=== PATIENT | female | born 1985 | race Caucasian/White ===

== ENCOUNTER 2016-05-30 21:09 | Emergency (ER) | payer OTHER, SELFPAY ==
[~2016-05-30 21:09] MED LIST: ACET50TA OR; IBUP80TA OR
[2016-05-30 22:14] LABS: CONTROL LINE UCG INT CTR LINE PRESENT
[2016-05-30] MEDS ORDERED: PHENAZOPYRIDINE 100 MG TAB As Ordered ONE (23:00)
[2016-05-30] MEDS ORDERED: CIPROFLOXACIN 500 MG TAB As Ordered ONE (23:00)
--- NOTE | 2016-05-30 23:07 | EDDOCDS ---
Physician Documentation [facility] Name: Jocelyn Montoya Age: 30 yrs Sex: Female : 1985 Arrival Date: 05/30/2016 Time: 21:09 Bed I3 / M3 Private MD: Unknown Pcp Disposition: 05/30/16 22:58 Discharged to Home/Self Care. Impression: Urinary tract infection, site not specified. - Condition is Stable. - Discharge Instructions: Dysuria, Urinary Tract Infection. - Prescriptions for Cipro 500 mg Oral Tablet - take 1 tablet by ORAL route every 12 hours; 14 tablet. Pyridium 200 mg Oral Tablet - take 1 tablet by ORAL route every 8 hours for 3 days; 9 tablet. - Medication Reconciliation, Local Pharmacy Hours form. - Follow up: Private Physician; When: Call to arrange an appointment; Reason: Recheck today's complaints, Continuance of care. - Problem is new. - Symptoms are unchanged. Historical: - Allergies: no known allergies; - Home Meds: 1. Mirena 20 mcg/24 hr (5 years) intrauterine IUD - PMHx: ovarian cyst removal as child; - PSHx: ovarian cyst removal; - Social history: Smoking status: Patient uses tobacco products, heavy tobacco smoker. Patient/guardian denies using alcohol, street drugs, No barriers to communication noted, The patient speaks fluent Lithuanian, Speaks appropriately for age. - Family history: Not pertinent. - : The pt / caregiver states he / she is not on anticoagulants. Home medication list is obtained from the patient. - Exposure Risk Screening:: None identified. 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 3 in. (160.02 cm); Pain 8/10; 23:01 BP 133 / 84; Pulse 100; Resp 18; Temp 98.9; Pulse Ox 98% ; ajs 21:11 Body Mass Index 27.63 (70.76 kg, 160.02 cm) sew MDM: 21:23 UA Ordered. EDMS 21:58 UA Reviewed. mo1 22:00 Set up pelvic ordered. mo1 22:01 Urine Culture Ordered. EDMS 22:01 GC & Chlamydia Amplification Ordered. EDMS 22:01 Wet Prep Ordered. EDMS 22:01 Urine Test-In Lab Ordered. EDMS 22:24 Financial registration complete. gjb 22:28 [facility] Payment Agreement was scanned into [employer] and attached to record. gjb 22:37 Urine Test-In Lab Reviewed. mo1 22:57 Wet Prep Reviewed. mo1 22:58 Ciprofloxacin 500 mg PO once ordered. mo1 22:58 Phenazopyridine 200 mg PO once ordered. mo1 Administered Medications: 23:03 Drug: Ciprofloxacin 500 mg [ciprofloxacin 500 mg tablet (1 tabs)] Route: PO; kas2 23:03 Drug: Phenazopyridine 200 mg [phenazopyridine 100 mg tablet (2 tabs)] Route: PO; kas2 Signatures: Dispatcher [employer] Marta Greenfield RN RN Garret Bravo PA PA mo1 Fabienne Bonilla gjb Tania Peters RN RN kas2 The chart was reviewed and I authenticate all verbal orders and agree with the evaluation and treatment provided.Corrections: (The following items were deleted from the chart) 22:00 22:00 UCG by Nursing ordered. mo1 mo1 Attachments: 22:28 [facility] Payment Agreement [facility] MTDD
--- NOTE | 2016-05-30 23:07 | EDDOCDS ---
Nurse's Notes [facility] Name: Jocelyn Montoya Age: 30 yrs Sex: Female : 1985 Arrival Date: 05/30/2016 Time: 21:09 Bed I3 / M3 Private MD: Unknown Pcp Diagnosis: Urinary tract infection, site not specified Presentation: 05/30 21:18 Presenting complaint: Patient states: "severe pressure and pain" in vagina since ttb Thursday. Worse over past 2 days. Denies burning, urgency, frequency. Denies GI changes. Adult Sepsis Screening: The patient does not have new or worsening altered mentation. Patient's respiratory rate is less than 22. Systolic blood pressure is greater than 100. Patient has a qSOFA score of 0- Negative Sepsis Screen. Suicide/Homicide risk assessment- the patient denies having any suicidal and/or homicidal ideations and does not present with any other emotional, behavioral or mental health complaints. Status: The patient is a dependent. Transition of care: patient was not received from another setting of care. 21:18 Acuity: NICHOLE Level 3 ttb 21:18 Method Of Arrival: Walkin/Carried/Asstd ttb Triage Assessment: 21:21 General: Appears in no apparent distress, uncomfortable, well nourished, well groomed, ttb Behavior is appropriate for age, cooperative, pleasant. Pain: Location: vaginal 01/27. HIV screening NA for this visit Offered previously. Neurological: Level of Consciousness is awake, alert. Cardiovascular: Chest pain is denied. Respiratory: No deficits noted. Airway is patent Denies cough, shortness of breath. GI: Denies nausea, vomiting, pain. : Denies burning with urination, urinary frequency, urgency. Derm: Skin is normal. 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 Mirena 20 mcg/24 hr (5 years) intrauterine IUD - PMHx: ovarian cyst removal as child; - PSHx: ovarian cyst removal; - Social history: Smoking status: Patient uses tobacco products, heavy tobacco smoker. Patient/guardian denies using alcohol, street drugs, No barriers to communication noted, The patient speaks fluent Armenian, Speaks appropriately for age. - Family history: Not pertinent. - : The pt / caregiver states he / she is not on anticoagulants. Home medication list is obtained from the patient. - Exposure Risk Screening:: None identified. Screenin:04 Screening information is obtained from the patient. Fall risk: No risks identified. kas2 Fall risk: No risks identified. Assistance ADL's: requires no assistance with activities of daily living. Abuse/DV Screen: The patient / caregiver reports he/she is: not in a situation that causes fear, pain or injury. Nutritional screening: No deficits noted. Advance Directives: Currently, there is no health care proxy. There is no active DNR order. There is no living will. There is no Power of Purse Seining Hand. home support is adequate. Assessment: 22:41 Pain:. kas2 23:03 General: Appears in no apparent distress, uncomfortable, well nourished, well groomed, kas2 Behavior is appropriate for age, cooperative. Pain: Location: vaginal Pain currently is 4 out of 10 on a pain scale. Neurological: Level of Consciousness is awake, alert, Oriented to person, place, time. Cardiovascular: Rhythm is regular. Respiratory: Airway is patent Respiratory effort is even, unlabored, Respiratory pattern is regular, symmetrical. Derm: Skin is intact, Skin is dry, Skin is pink, warm & dry. Skin temperature is warm. Vital Signs: 21:11 BP 133 / 85; Pulse 113; Resp 16; Temp 99.3(O); Pulse Ox 98% on R/A; Weight 70.76 kg; sew Height 5 ft. 3 in. (160.02 cm); Pain 8/10; 23:01 BP 133 / 84; Pulse 100; Resp 18; Temp 98.9; Pulse Ox 98% ; ajs 21:11 Body Mass Index 27.63 (70.76 kg, 160.02 cm) [facility]: 21:11 Log In Time: May 30, 2016 at 21:10. [facility] Course: 21:11 Patient visited by Halie Bradley. sew 21:11 Unknown Pcp is Private Physician. sew 21:11 Patient moved to Waiting sew 21:12 Patient visited by Halie Bradley. sew 21:12 Patient moved to Pre RCE sew 21:20 Triage Initiated ttb 21:25 Urine collected. Clean catch specimen. Urine specimen sent to lab. rs6 21:26 UA Sent. rs6 21:38 Patient moved to Triage 1 rs6 21:43 Garret Garcia PA is PHCP. mo1 21:43 Micah Reaves DO is Attending Physician. mo1 21:57 Patient visited by Garret Garcia PA. mo1 22:02 Patient moved to I3 / M3 nn1 22:28 [facility] Payment Agreement was scanned into [employer] and attached to record. gjb 22:42 Patient visited by Tania Peters RN. kas2 22:45 Wet Prep Sent. ajs 22:45 GC & Chlamydia Amplification Sent. ajs 23:01 Patient visited by Sowmya Riojas. ajs 23:05 Patient visited by Tania Peters RN. kas2 23:05 The patient / caregiver is instructed regarding the plan of care and ED course. kas2 23:05 No IV's were initiated during this patient's visit. No procedures done that require kas2 assistance. Administered Medications: 23:03 Drug: Ciprofloxacin 500 mg [ciprofloxacin 500 mg tablet (1 tabs)] Route: PO; kas2 23:03 Drug: Phenazopyridine 200 mg [phenazopyridine 100 mg tablet (2 tabs)] Route: PO; kas2 Order Results: Lab Order: UA; SPEC'M 05/30/16 21:26 Test: APPEARANCE, URINE; Value: HAZY; Range: CLEAR; Status: F Test: COLOR, URINE; Value: YELLOW; Range: YELLOW; Status: F Test: PH,URINE; Value: 6.0; Range: 5.0-9.0; Units: UNITS; Status: F Test: SPECIFIC GRAVITY URINE AUTO; Value: 1.017; Range: 1.002-1.035; Status: F Test: PROTEIN, URINE AUTO; Value: NEGATIVE; Range: NEGATIVE; Units: mg/dL; Status: F Test: GLUCOSE, URINE (UA) AUTO; Value: NEGATIVE; Range: NEGATIVE; Units: mg/dL; Status: F Test: KETONE, URINE AUTO; Value: TRACE; Range: NEGATIVE; Abnormal: Above high normal; Units: mg/dL; Status: F Test: UROBILINOGEN, URINE AUTO; Value: 0.2; Range: 0.0-2.0; Units: mg/dL; Status: F Test: BILIRUBIN, URINE AUTO; Value: NEGATIVE; Range: NEGATIVE; Status: F Test: NITRITE, URINE AUTO; Value: NEGATIVE; Range: NEGATIVE; Status: F Test: LEUKOCYTE ESTERASE, URINE AUTO; Value: 2+; Range: NEGATIVE; Abnormal: Above high normal; Status: F Test: BLOOD, URINE BLOOD; Value: 1+; Range: NEGATIVE; Abnormal: Above high normal; Status: F Test: WBC, URINE AUTO; Value: 50; Range: 0-3; Abnormal: Above high normal; Units: /HPF; Status: F Test: RBC, URINE AUTO; Value: 14; Range: 0-3; Abnormal: Above high normal; Units: /HPF; Status: F Test: BACTERIA, URINE AUTO; Value: 1+; Range: NEGATIVE; Abnormal: Above high normal; Status: F Test: SQUAMOUS EPITHELIAL CELL UR AU; Value: 4; Range: 0-6; Units: /HPF; Status: F Test: MUCUS, URINE; Value: SMALL; Range: NEGATIVE; Status: F Test: HYALINE CAST, URINE AUTO; Value: 0; Range: 0-1; Units: /LPF; Status: F Lab Order: Wet Prep; SPEC'M 05/30/16 22:34 Test: WET PREP; Value: WET PREP RESULT; Status: F Test: WET PREP; Value: MANY EPITHELIAL CELLS PRESENT; Status: F Test: WET PREP; Value: MANY WBC; Status: F Test: WET PREP; Value: MODERATE LONG RODS PRESENT; Status: F Test: WET PREP; Value: MODERATE SHORT RODS PRESENT; Status: F Lab Order: Urine Test-In Lab; SPEC'M 05/30/16 21:25 Test: URINE PREG TEST; Value: NEGATIVE; Range: NEGATIVE; Status: F Outcome: 22:58 Discharge ordered by Provider. mo1 23:04 Discharge Assessment: patient administered narcotics - no. The following High Risk [facility] Discharge criteria are identified: None. Discharged to home ambulatory. Condition: good Condition: stable Condition: improved. No special radiology studies were completed. Property :Personal belongings accompany Pt. 23:05 Patient left the ED. [facility] Signatures: Sowmya Riojas Sarah sew Conner, Teresa RN RN Garret Bravo PA PA mo1 Megan Persaud, RADIOLOGICAL ENGINEER RADIOLOGICAL ENGINEER rs6 Alber MarksRN RN nn1 Fabienne BonillaTania,RN RN kas2 MTDD
--- NOTE | 2016-06-02 00:07 | EDDOCDS ---
Physician Documentation [facility] Name: Jocelyn Montoya Age: 30 yrs Sex: Female : 1985 Arrival Date: 05/30/2016 Time: 21:09 Bed I3 / M3 Private MD: Unknown Pcp Disposition: 05/30/16 22:58 Discharged to Home/Self Care. Impression: Urinary tract infection, site not specified. - Condition is Stable. - Discharge Instructions: Dysuria, Urinary Tract Infection. - Prescriptions for Cipro 500 mg Oral Tablet - take 1 tablet by ORAL route every 12 hours; 14 tablet. Pyridium 200 mg Oral Tablet - take 1 tablet by ORAL route every 8 hours for 3 days; 9 tablet. - Medication Reconciliation, Local Pharmacy Hours form. - Follow up: Private Physician; When: Call to arrange an appointment; Reason: Recheck today's complaints, Continuance of care. - Problem is new. - Symptoms are unchanged. Historical: - Allergies: no known allergies; - Home Meds: 1. Mirena 20 mcg/24 hr (5 years) intrauterine IUD - PMHx: ovarian cyst removal as child; - PSHx: ovarian cyst removal; - Social history: Smoking status: Patient uses tobacco products, heavy tobacco smoker. Patient/guardian denies using alcohol, street drugs, No barriers to communication noted, The patient speaks fluent Maori, Speaks appropriately for age. - Family history: Not pertinent. - : The pt / caregiver states he / she is not on anticoagulants. Home medication list is obtained from the patient. - Exposure Risk Screening:: None identified. 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 3 in. (160.02 cm); Pain 8/10; 23:01 BP 133 / 84; Pulse 100; Resp 18; Temp 98.9; Pulse Ox 98% ; ajs 21:11 Body Mass Index 27.63 (70.76 kg, 160.02 cm) sew MDM: 21:23 UA Ordered. EDMS 21:58 UA Reviewed. mo1 22:00 Set up pelvic ordered. mo1 22:01 Urine Culture Ordered. EDMS 22:01 GC & Chlamydia Amplification Ordered. EDMS 22:01 Wet Prep Ordered. EDMS 22:01 Urine Test-In Lab Ordered. EDMS 22:24 Financial registration complete. gjb 22:28 [facility] Payment Agreement was scanned into [employer] and attached to record. gjb 22:37 Urine Test-In Lab Reviewed. mo1 22:57 Wet Prep Reviewed. mo1 22:58 Ciprofloxacin 500 mg PO once ordered. mo1 22:58 Phenazopyridine 200 mg PO once ordered. mo1 05/31 11:01 T-Sheet-- Draft Copy was scanned into [employer] and attached to record. gb Administered Medications: 05/30 23:03 Drug: Ciprofloxacin 500 mg [ciprofloxacin 500 mg tablet (1 tabs)] Route: PO; kas2 23:03 Drug: Phenazopyridine 200 mg [phenazopyridine 100 mg tablet (2 tabs)] Route: PO; kas2 Signatures: Dispatcher [employer] EDMS Rachel Donnelly Reg Reg gb Conner, Teresa, RN RN karib Garret Garcai PA PA mo1 Fabienne Bonilla gjb Tania PetersRN RN kas2 The chart was reviewed and I authenticate all verbal orders and agree with the evaluation and treatment provided.Corrections: (The following items were deleted from the chart) 22:00 22:00 UCG by Nursing ordered. mo1 mo1 Attachments: 22:28 [facility] Payment Agreement [facility] 05/31 11:01 T-Sheet-- Draft Copy gb Chart Complete MTDD
--- NOTE | 2016-06-02 00:07 | EDDOCDS ---
Nurse's Notes [facility] Name: Jocelyn Montoya Age: 30 yrs Sex: Female : 1985 Arrival Date: 05/30/2016 Time: 21:09 Bed I3 / M3 Private MD: Unknown Pcp Diagnosis: Urinary tract infection, site not specified Presentation: 05/30 21:18 Presenting complaint: Patient states: "severe pressure and pain" in vagina since ttb Thursday. Worse over past 2 days. Denies burning, urgency, frequency. Denies GI changes. Adult Sepsis Screening: The patient does not have new or worsening altered mentation. Patient's respiratory rate is less than 22. Systolic blood pressure is greater than 100. Patient has a qSOFA score of 0- Negative Sepsis Screen. Suicide/Homicide risk assessment- the patient denies having any suicidal and/or homicidal ideations and does not present with any other emotional, behavioral or mental health complaints. Status: The patient is a dependent. Transition of care: patient was not received from another setting of care. 21:18 Acuity: NICHOLE Level 3 ttb 21:18 Method Of Arrival: Walkin/Carried/Asstd ttb Triage Assessment: 21:21 General: Appears in no apparent distress, uncomfortable, well nourished, well groomed, ttb Behavior is appropriate for age, cooperative, pleasant. Pain: Location: vaginal 01/27. HIV screening NA for this visit Offered previously. Neurological: Level of Consciousness is awake, alert. Cardiovascular: Chest pain is denied. Respiratory: No deficits noted. Airway is patent Denies cough, shortness of breath. GI: Denies nausea, vomiting, pain. : Denies burning with urination, urinary frequency, urgency. Derm: Skin is normal. 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 Mirena 20 mcg/24 hr (5 years) intrauterine IUD - PMHx: ovarian cyst removal as child; - PSHx: ovarian cyst removal; - Social history: Smoking status: Patient uses tobacco products, heavy tobacco smoker. Patient/guardian denies using alcohol, street drugs, No barriers to communication noted, The patient speaks fluent Macedonian, Speaks appropriately for age. - Family history: Not pertinent. - : The pt / caregiver states he / she is not on anticoagulants. Home medication list is obtained from the patient. - Exposure Risk Screening:: None identified. Screenin:04 Screening information is obtained from the patient. Fall risk: No risks identified. kas2 Fall risk: No risks identified. Assistance ADL's: requires no assistance with activities of daily living. Abuse/DV Screen: The patient / caregiver reports he/she is: not in a situation that causes fear, pain or injury. Nutritional screening: No deficits noted. Advance Directives: Currently, there is no health care proxy. There is no active DNR order. There is no living will. There is no Power of Talent Development Director. home support is adequate. Assessment: 22:41 Pain:. kas2 23:03 General: Appears in no apparent distress, uncomfortable, well nourished, well groomed, kas2 Behavior is appropriate for age, cooperative. Pain: Location: vaginal Pain currently is 4 out of 10 on a pain scale. Neurological: Level of Consciousness is awake, alert, Oriented to person, place, time. Cardiovascular: Rhythm is regular. Respiratory: Airway is patent Respiratory effort is even, unlabored, Respiratory pattern is regular, symmetrical. Derm: Skin is intact, Skin is dry, Skin is pink, warm & dry. Skin temperature is warm. Vital Signs: 21:11 BP 133 / 85; Pulse 113; Resp 16; Temp 99.3(O); Pulse Ox 98% on R/A; Weight 70.76 kg; sew Height 5 ft. 3 in. (160.02 cm); Pain 8/10; 23:01 BP 133 / 84; Pulse 100; Resp 18; Temp 98.9; Pulse Ox 98% ; ajs 21:11 Body Mass Index 27.63 (70.76 kg, 160.02 cm) [facility] [place] Vitals: 21:11 Log In Time: May 30, 2016 at 21:[address]. [facility] [place] ED Course: 21:11 Patient visited by Halie Bradley. sew 21:11 Unknown Pcp is Private Physician. sew 21:11 Patient moved to Waiting sew 21:12 Patient visited by Halie Bradley. sew 21:12 Patient moved to Pre RCE sew 21:20 Triage Initiated ttb 21:25 Urine collected. Clean catch specimen. Urine specimen sent to lab. rs6 21:26 UA Sent. rs6 21:38 Patient moved to Triage 1 rs6 21:43 Garret Garcia PA is PHCP. mo1 21:43 Micah Reaves DO is Attending Physician. mo1 21:57 Patient visited by Garret Garcia PA. mo1 22:02 Patient moved to I3 / M3 nn1 22:28 [facility] Payment Agreement was scanned into [employer] and attached to record. gjb 22:42 Patient visited by Tania Peters RN. kas2 22:45 Wet Prep Sent. ajs 22:45 GC & Chlamydia Amplification Sent. ajs 23:01 Patient visited by Sowmya Riojas. ajs 23:05 Patient visited by Tania Peters RN. kas2 23:05 The patient / caregiver is instructed regarding the plan of care and ED course. kas2 23:05 No IV's were initiated during this patient's visit. No procedures done that require kas2 assistance. 05/31 11:01 T-Sheet-- Draft Copy was scanned into [employer] and attached to record. gb Administered Medications: 05/30 23:03 Drug: Ciprofloxacin 500 mg [ciprofloxacin 500 mg tablet (1 tabs)] Route: PO; kas2 23:03 Drug: Phenazopyridine 200 mg [phenazopyridine 100 mg tablet (2 tabs)] Route: PO; kas2 Order Results: Lab Order: UA; SPEC'M 05/30/16 21:26 Test: APPEARANCE, URINE; Value: HAZY; Range: CLEAR; Status: F Test: COLOR, URINE; Value: YELLOW; Range: YELLOW; Status: F Test: PH,URINE; Value: 6.0; Range: 5.0-9.0; Units: UNITS; Status: F Test: SPECIFIC GRAVITY URINE AUTO; Value: 1.017; Range: 1.002-1.035; Status: F Test: PROTEIN, URINE AUTO; Value: NEGATIVE; Range: NEGATIVE; Units: mg/dL; Status: F Test: GLUCOSE, URINE (UA) AUTO; Value: NEGATIVE; Range: NEGATIVE; Units: mg/dL; Status: F Test: KETONE, URINE AUTO; Value: TRACE; Range: NEGATIVE; Abnormal: Above high normal; Units: mg/dL; Status: F Test: UROBILINOGEN, URINE AUTO; Value: 0.2; Range: 0.0-2.0; Units: mg/dL; Status: F Test: BILIRUBIN, URINE AUTO; Value: NEGATIVE; Range: NEGATIVE; Status: F Test: NITRITE, URINE AUTO; Value: NEGATIVE; Range: NEGATIVE; Status: F Test: LEUKOCYTE ESTERASE, URINE AUTO; Value: 2+; Range: NEGATIVE; Abnormal: Above high normal; Status: F Test: BLOOD, URINE BLOOD; Value: 1+; Range: NEGATIVE; Abnormal: Above high normal; Status: F Test: WBC, URINE AUTO; Value: 50; Range: 0-3; Abnormal: Above high normal; Units: /HPF; Status: F Test: RBC, URINE AUTO; Value: 14; Range: 0-3; Abnormal: Above high normal; Units: /HPF; Status: F Test: BACTERIA, URINE AUTO; Value: 1+; Range: NEGATIVE; Abnormal: Above high normal; Status: F Test: SQUAMOUS EPITHELIAL CELL UR AU; Value: 4; Range: 0-6; Units: /HPF; Status: F Test: MUCUS, URINE; Value: SMALL; Range: NEGATIVE; Status: F Test: HYALINE CAST, URINE AUTO; Value: 0; Range: 0-1; Units: /LPF; Status: F Lab Order: Urine Culture; SPEC'M 05/30/16 21:25 Test: URINE CULTURE; Value: <EXTERNAL COMMENT eCWMed> FULL REPORT IN LAB NOTES (eCW and Medent).; Status: F Test: URINE CULTURE; Value: URINE CULTURE RESULT SPECIMEN APPEARS CONTAMINATED; Status: F Lab Order: GC & Chlamydia Amplification; SPEC'M 05/30/16 22:34 Test: CHLAMYDIA DNA AMPLIFICATION; Value: NEGATIVE; Range: NEGATIVE; Status: F Test: GC DNA AMPLIFICATION; Value: NEGATIVE; Range: NEGATIVE; Status: F Lab Order: Wet Prep; SPEC'M 05/30/16 22:34 Test: WET PREP; Value: WET PREP RESULT; Status: F Test: WET PREP; Value: MANY EPITHELIAL CELLS PRESENT; Status: F Test: WET PREP; Value: MANY WBC; Status: F Test: WET PREP; Value: MODERATE LONG RODS PRESENT; Status: F Test: WET PREP; Value: MODERATE SHORT RODS PRESENT; Status: F Lab Order: Urine Test-In Lab; SPEC'M 05/30/16 21:25 Test: URINE PREG TEST; Value: NEGATIVE; Range: NEGATIVE; Status: F Outcome: 22:58 Discharge ordered by Provider. mo1 23:04 Discharge Assessment: patient administered narcotics - no. The following High Risk [facility] Discharge criteria are identified: None. Discharged to home ambulatory. Condition: good Condition: stable Condition: improved. No special radiology studies were completed. Property :Personal belongings accompany Pt. 23:05 Patient left the ED. kas2 Signatures: Rachel Donnelly, Reg Reg randy Riojas, Sowmya Bradley, Marta Ulloa, RN RN ttb Garret Garcia PA PA mo1 Megan Persaud, NATURAL SCIENCES PROFESSOR NATURAL SCIENCES PROFESSOR rs6 Alber Marks,RN RN nn1 Fabienne Bonilla Kim,RN RN kas2 Chart Complete MTDNaveed
--- NOTE | 2016-06-02 00:07 | EDDOCDS ---
Physician Documentation [facility] Name: Jocelyn Montoya Age: 30 yrs Sex: Female : 1985 Arrival Date: 05/30/2016 Time: 21:09 Bed I3 / M3 Private MD: Unknown Pcp Disposition: 05/30/16 22:58 Discharged to Home/Self Care. Impression: Urinary tract infection, site not specified. - Condition is Stable. - Discharge Instructions: Dysuria, Urinary Tract Infection. - Prescriptions for Cipro 500 mg Oral Tablet - take 1 tablet by ORAL route every 12 hours; 14 tablet. Pyridium 200 mg Oral Tablet - take 1 tablet by ORAL route every 8 hours for 3 days; 9 tablet. - Medication Reconciliation, Local Pharmacy Hours form. - Follow up: Private Physician; When: Call to arrange an appointment; Reason: Recheck today's complaints, Continuance of care. - Problem is new. - Symptoms are unchanged. Historical: - Allergies: no known allergies; - Home Meds: 1. Mirena 20 mcg/24 hr (5 years) intrauterine IUD - PMHx: ovarian cyst removal as child; - PSHx: ovarian cyst removal; - Social history: Smoking status: Patient uses tobacco products, heavy tobacco smoker. Patient/guardian denies using alcohol, street drugs, No barriers to communication noted, The patient speaks fluent Lithuanian, Speaks appropriately for age. - Family history: Not pertinent. - : The pt / caregiver states he / she is not on anticoagulants. Home medication list is obtained from the patient. - Exposure Risk Screening:: None identified. 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 3 in. (160.02 cm); Pain 8/10; 23:01 BP 133 / 84; Pulse 100; Resp 18; Temp 98.9; Pulse Ox 98% ; ajs 21:11 Body Mass Index 27.63 (70.76 kg, 160.02 cm) sew MDM: 21:23 UA Ordered. EDMS 21:58 UA Reviewed. mo1 22:00 Set up pelvic ordered. mo1 22:01 Urine Culture Ordered. EDMS 22:01 GC & Chlamydia Amplification Ordered. EDMS 22:01 Wet Prep Ordered. EDMS 22:01 Urine Test-In Lab Ordered. EDMS 22:24 Financial registration complete. gjb 22:28 [facility] Payment Agreement was scanned into [employer] and attached to record. gjb 22:37 Urine Test-In Lab Reviewed. mo1 22:57 Wet Prep Reviewed. mo1 22:58 Ciprofloxacin 500 mg PO once ordered. mo1 22:58 Phenazopyridine 200 mg PO once ordered. mo1 05/31 11:01 T-Sheet-- Draft Copy was scanned into Hunch and attached to record. gb Administered Medications: 05/30 23:03 Drug: Ciprofloxacin 500 mg [ciprofloxacin 500 mg tablet (1 tabs)] Route: PO; kas2 23:03 Drug: Phenazopyridine 200 mg [phenazopyridine 100 mg tablet (2 tabs)] Route: PO; kas2 Signatures: Dispatcher [employer] EDMS Rachel Donnelly Reg Reg gb Conner, Teresa, RN RN karib Garret Garcia PA PA mo1 Fabienne Bonilla gjb Tania PetersRN RN kas2 The chart was reviewed and I authenticate all verbal orders and agree with the evaluation and treatment provided.Corrections: (The following items were deleted from the chart) 22:00 22:00 UCG by Nursing ordered. mo1 mo1 Attachments: 22:28 [facility] Payment Agreement [facility] 05/31 11:01 T-Sheet-- Draft Copy gb Chart Complete MTDD
== END 2016-05-30 23:05 | disposition home or self-care (01) ==
LOC: M ED 21:09
DX: N39.0 Urinary tract infection, site not specified (principal); R31.9 Hematuria, unspecified; Z72.0 Tobacco use

== ENCOUNTER → 2016-06-18 | Outpatient (REF) | payer OTHER | LOC: M SFHCLERA 18:22 | PROVIDERS: ATTEND Nurse Practitioner Family | DX: J02.9 Acute pharyngitis, unspecified (principal); R30.0 Dysuria; R53.83 Other fatigue ==

== ENCOUNTER → 2016-06-22 | Outpatient (REF) | payer OTHER | LOC: M SFHCLERA 14:08 | PROVIDERS: ATTEND Nurse Practitioner Family | DX: R30.0 Dysuria (principal); J02.9 Acute pharyngitis, unspecified ==

== ENCOUNTER 2020-01-10 18:04 | Inpatient (IN) | payer OTHER, SELFPAY ==
[~2020-01-10] VITALS: Ht 160 cm; Wt 77.3 kg
[~2020-01-10 18:04] MED LIST changes: -ACET50TA OR; +MAPA500T17 OR
[2020-01-10 18:26] LABS: HEMOGLOBIN 13.8 g/dl (12.0-15.5); MEAN CORPUSCULAR HEMOGLOBIN 25.9 pg (27.0-33.0); MEAN CORPUSCULAR HGB CONC 32.1 g/dl (32.0-36.5); MEAN CORPUSCULAR VOLUME 80.8 fl (80.0-96.0); PLATELET COUNT, AUTOMATED 282 10^3/uL (150-450); RED BLOOD COUNT 5.32 10^6/uL (4.00-5.40)
[2020-01-10 19:02] LABS: AMPHETAMINES LEVEL URINE NEGATIVE (NEGATIVE); BARBITURATES URINE NEGATIVE (NEGATIVE); BENZODIAZEPINES URINE NEGATIVE (NEGATIVE); CANNABINOIDS URINE POSITIVE (NEGATIVE); COCAINE METABOLITE URINE NEGATIVE (NEGATIVE); METHADONE URINE NEGATIVE (NEGATIVE); OPIATES URINE NEGATIVE (NEGATIVE); PHENCYCLIDINE URINE NEGATIVE (NEGATIVE)
[2020-01-10 19:03] LABS: ACETAMINOPHEN LEVEL < 2.0 UG/ML (10.0-30.0); ALBUMIN 3.6 GM/DL (3.2-5.2); ALT/SGPT 29 U/L (12-78); BILIRUBIN,DIRECT < 0.1 MG/DL (0.0-0.2); BILIRUBIN,TOTAL 0.4 MG/DL (0.2-1.0); BLOOD UREA NITROGEN 8 MG/DL (7-18); CALCIUM LEVEL 8.9 MG/DL (8.5-10.1); CARBON DIOXIDE LEVEL 26 MEQ/L (21-32); CHLORIDE LEVEL 108 MEQ/L (98-107); CREATININE FOR GFR 0.76 MG/DL (0.55-1.30); ETHYL ALCOHOL (ETHANOL) < 0.003 % (0.000-0.010); GLOMERULAR FILTRATION RATE > 60.0 (>60); GLUCOSE, FASTING 90 MG/DL (70-100); POTASSIUM SERUM 3.7 MEQ/L (3.5-5.1); SALICYLATE LEVEL 4.4 MG/DL (5.0-30.0); SODIUM LEVEL 140 MEQ/L (136-145); THYROID STIMULATING HORMONE 0.677 uIU/ML (0.358-3.740); TOTAL PROTEIN 7.1 GM/DL (6.4-8.2)
[2020-01-10 19:05] LABS: HCG, SERUM QUALITATIVE NEGATIVE (NEGATIVE)
[2020-01-10] MEDS ORDERED: ACETAMINOPHEN TAB 650MG DOSE (2X325MG) PO ONE (21:30)
[2020-01-10] MEDS ORDERED: patient comment (21:34)
[2020-01-10] MEDS ORDERED: CITA20TA7 PO (21:34)
[2020-01-10] MEDS ORDERED: PANT40TA29 PO (21:34)
[2020-01-10] MEDS ORDERED: PATIENT COMMENT (21:35)
[2020-01-11] MEDS ORDERED: NICOTINE 21MG/24HR 1 EA TRANSDERMAL TD ONE (01:15)
--- NOTE | 2020-01-11 08:25 | ECGEPIP ---
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
[2020-01-11] MEDS ORDERED: ACETAMINOPHEN TAB 650MG DOSE (2X325MG) PO ONE (14:15)
[2020-01-11] MEDS ORDERED: traZODone 50 MG TAB PO PRN (15:45)
[2020-01-11] MEDS ORDERED: MOM 30ML SUSPENSION UDC PO PRN (15:45)
[2020-01-11] MEDS ORDERED: MAALOX 30 ML SUSP *UDC PO PRN (15:45)
[2020-01-11] MEDS ORDERED: LORazepam 1 MG TAB PO PRN (15:45)
[2020-01-11] MEDS ORDERED: ACETAMINOPHEN TAB 650MG DOSE (2X325MG) PO PRN (15:45)
[2020-01-11] MEDS: CitaloPRAM (CeleXA) 10 MG TABLET PO SCH (20:06)
[2020-01-11] MEDS ORDERED: CitaloPRAM (CeleXA) 20 MG TAB PO SCH (21:00)
[2020-01-12 06:37] VITALS: BP 120/70
[2020-01-12] MEDS: PANTOPRAZOLE 40MG TAB (PROTONIX) PO SCH (08:12)
[2020-01-12] MEDS: NICOTINE 21MG/24HR 1 EA TRANSDERMAL TD SCH (08:13)
--- NOTE | 2020-01-12 10:32 | MHHPEPDOC ---
[facility] History & Physical History and Physical DATE OF ADMISSION: Jan 11, 2020 at 15:31 Subjective HPI: The patient a 34-year-old woman is brought in after reportedly making a concerning statement 2 days ago that was recorded by a coworker, she reportedly stated "I just want to kill them," when discussing her displeasure with her employer. She was fired for this, however them was brought in by the police for uncertain reasons. The patient reports that although she had made that statement she had no intentions of harming anyone and stated that out of anger. Her was consulted on admission which revealed no concerning behaviors and no access to firearms at this time. The patient reported that she had me that statement out of anger has a history of depression but no current symptoms other than stress related to multiple engagements and difficulties at work. 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 Denies any auditory or visual hallucinations. Does not appear to be responding to internal stimuli. Does not appear to be endorsing any bizarre or paranoid ideation. Judgment: fair Insight: fair Orientation: Alert and orientated 3 Recent and remote memory: Intact Attention span and concentration: Intact Fund of knowledge: Adequate Mood: "okay" Affect: Euthymic with a full range Assessment Adjustment disorder disruption would conduct Plan Continue home Celexa and monitor for 48 hours will likely be released after 48 hours. If she does not do him straight any concerning behaviors, as it appears that she had made that statement out of hyperbole Treatment priorities are 1. Risk for aggression 2. Depression Stay for 1-2 days. Vital Signs Vital Signs Date Time Temp Pulse Resp B/P (MAP) Pulse Ox O2 Delivery O2 Flow Rate FiO2 01/12/20 06:37 96.5 67 12 120/70 (87) Room Air 01/11/20 14:23 100 Medications Scheduled Citalopram Hydrobromide (Citalopram HBr) 20 Mg Tablet, 20 MG PO QHS, (Reported) Nicotine (Nicotine Patch) 21 Mg Patch.td24, 1 PATCH TD DAILY for tobacco Pantoprazole Sodium (Pantoprazole Sodium) 40 Mg Tablet.dr, 40 MG PO DAILY, (Reported) Scheduled PRN Hydroxyzine HCl (Hydroxyzine HCl) 10 Mg Tablet, 1 TAB PO DAILY PRN for ANXIETY/AGITATION Miscellaneous Medications [Patient Comment] , (Reported) PATIENT HASN'T TAKEN ANY HOME MEDICATIONS TODAY Allergies Coded Allergies: No Known Allergies (Unverified , 01/10/20) ANABELLE LANDEROS DO Jan 12, 2020 10:32
--- NOTE | 2020-01-12 11:30 | HPEPDOC ---
[facility] Medical History & Physical Date of Admission Jan 11, 2020 Date of Service: Jan 12, 2020 Attending Physician: Joleen Thakur MD History and Physical HISTORY OF PRESENT ILLNESS: Patient is a 34-year-old female with past medical history of GERD, borderline depression, anxiety, tobacco use who presented to [facility] emergency room accompanied by police after been recorded making threats to shoot the people in her workplace. The patient was apparently at work and recorded stating that she was going to shoot the people in her workplace. This was later turned over to the workplace and police were involved. She was later brought to the emergency room for psych evaluation. According to the patient she has a history of borderline depression and has been treated as outpatient for some time. She does not feel her depression has worsened but does admit to increased agitation, frustration of feeling "being taken advantage of by people at her workplace" and "being used" by those same people without being recognized for her work. 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 She feels as though she has been performing well and has not been moved to the neck stage by her mentor in work. She admits to not sleeping well occasionally but she itching. This to her hectic schedules. She also admits some decreased appetite. She denies homicidal ideation, suicidal ideation, paranoia, violence towards anyone, tearfulness, hopelessness, visual or auditory hallucinations. Patient was admitted to inpatient mental health for unspecified depressive disorder requiring further evaluation. REVIEW OF SYSTEMS: CONSTITUTIONAL: Denies lack of energy, unexplained weight gain or weight loss, fever, night sweats EYES: Denies eye drainage, eye pain, visual changes, dry/irritated eye EARS, NOSE, MOUTH, THROAT: Denies difficulty hearing, ringing in ears, mouth sores, loose teeth, sore throat, facial numbness or pain NECK: Denies swollen glands CARDIOVASCULAR: Denies irregular heartbeat, racing heart, chest pains, swelling of feet or legs, pain in legs with walking RESPIRATORY: Denies shortness of breath, night sweats, wheezing, sputum production, oxygen at home, coughing up blood, cough lasting > 1 month GASTROINTESTINAL: Denies abdominal pain, constipation, bloody stool, diarrhea, heartburn, nausea, vomiting GENITOURINARY: Denies painful urination, bloody urine, frequent urination, urgency, leaking urine, impotence MUSCULOSKELETAL: Denies joint pain, muscle pain, leg swelling INTEGUMENTARY: Denies rash, itching, new skin lesion, change in existing skin lesion, hair loss or increase, breast changes. NEUROLOGICAL: Denies headaches, dizziness, difficulty walking, numbness or t ingling PSYCHIATRIC: Denies recurrent bad thoughts, hallucinations PAST MEDICAL HISTORY: 1. Depression 2. GERD 3. Anxiety 4. Tobacco use PAST SURGICAL HISTORY: None FAMILY HISTORY: Father: metastatic lung CA, cirrhosis 2/2 to hepatitis, at 60 yrs old Mother: DM. Alive. maternal grandfather: CAD, ID. in early 60's. SOCIAL HISTORY: The patient smokes one2 packs per day, 20 years. Socially participates in alcohol use. Smokes marijuana recreationally. 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 She is currently working towards her pompom maker in school. ALLERGIES: Please see below. HOME MEDICATIONS: Please see below. PHYSICAL EXAMINATION: CONSTITUTIONAL: No acute distress, resting comfortably, AAO x 3 EYES: PERRLA, EOM intact HENT, MOUTH: Normocephalic, atraumatic, moist mucous membranes, NECK: SUPPLE, no JVD, no lymphadenopathy, no carotid bruit CV: Regular rate and rhythm, S1S2 normal, no murmurs/rubs/gallops RESPIRATORY: Clear to auscultation bilaterally, no rales/rhonchi/wheezes GI: BS positive in 4 quadrants, soft, nontender, nondistended, no rebound or guarding, no organomegaly : Deferred MUSCULOSKELETAL: Normal ROM. No cyanosis, clubbing, swelling, joint deformity, extremity edema INTEGUMENTARY: Intact, no rashes, no lesions, no erythema NEUROLOGIC: Cranial Nerves II-XII are intact, no focal deficits PSYCHIATRIC: Mood and affect are normal LABORATORY DATA: Please see below IMAGING: None ASSESSMENT: Patient is a 34-year-old female with past medical history of GERD, borderline depression, anxiety, tobacco use admitted for unspecified depressive disorder. PLAN: 1. Unspecified depressive disorder. Plan per psychiatric team. 2. Anxiety. Plan per psychiatric team. 3. Tobacco use. Nicotine patch, smoking cessation counselling provided during meeting. 4. GERD. Patient is supposed to f/u with o/p GI specialist, would recommend to continue to do so. C/w PPI. DISPOSITION: At this time will sign off on case, as other medical issues aside from psychiatric concerns are stable. If we are needed to reassess at any time do not hesitate to call. Thank you. Vital Signs Vital Signs Date Time Temp Pulse Resp B/P (MAP) Pulse Ox O2 Delivery O2 Flow Rate FiO2 01/12/20 06:37 96.5 67 12 120/70 (87) Room Air 01/11/20 14:23 100 Home Medications Scheduled Citalopram Hydrobromide (Citalopram HBr) 20 Mg Tablet, 20 MG PO QHS Pantoprazole Sodium (Pantoprazole Sodium) 40 Mg Tablet.dr, 40 MG PO DAILY Miscellaneous Medications [Patient Comment] PATIENT HASN'T TAKEN ANY HOME MEDICATIONS TODAY Allergies Coded Allergies: No Known Allergies (Unverified , 01/10/20) A-FIB/CHADSVASC A-FIB History Current/History of A-Fib/PAF?: No Current PO Anticoag Therapy: No Age/Risk Factor Scoring CHADSVASC: CHADSVASC Response (Comments) Value Age Risk Factor Age < 65 years old 0 Gender Risk Factor Female 1 Hx of CHF No 0 Hx of HTN No 0 Hx of Stroke/TIA/or VTE No 0 Hx of Diabetes No 0 Total 1 Treatment Treatment ordered: NONE Other anticoagulant ordered: none indicated Joleen Thakur MD Jan 12, 2020 11:30
[2020-01-12 18:34] VITALS: BP 126/73
[2020-01-12] MEDS: CitaloPRAM (CeleXA) 10 MG TABLET PO SCH (20:43)
[2020-01-13 06:45] VITALS: BP 127/76
[2020-01-13] MEDS: PANTOPRAZOLE 40MG TAB (PROTONIX) PO SCH (08:09)
[2020-01-13] MEDS: NICOTINE 21MG/24HR 1 EA TRANSDERMAL TD SCH (09:00)
--- NOTE | 2020-01-13 10:23 | MHDSPDOC ---
[facility] Discharge Summary Discharge Summary DATE OF ADMISSION: Jan 11, 2020 at 15:31 DATE OF DISCHARGE:Jan 13, 2020 at 11:30 DISCHARGE DIAGNOSES: F43.25 Adjustment disorder with mixed disturbance of emotions and conduct CONSULTANTS INVOLVED:[ None (basic hospitalist screening)] REASON FOR ADMISSION & TREATMENT AND PROGRESS ON THE UNIT : Patient was admitted to the inpatient mental health unit after making homicidal statements to a co-worker. She reportedly admitted this in the ER and in the collateral information supported that this was done in hyperbole. However, she admitted and observed for 48 hours where she made no concerning statements and generally had fair insight into the situation. She reported she felt remorse for saying such things but felt that it was done in hyperbole due to lack of sleep and multiple stressors. She did well in the unit, was socially engaged and demonstrated no concerning behavior or ideation to any staff member. After 48 hours of observation, she was triage for discharge as she did not meet involuntary criteria. She was resumed on her home Celexa without incident. DISCHARGE ASSESSMENT[stable] Legal status considerations: The patient at the time of discharge did not meet criteria for involuntary admission/extension due to having a [normal] mental status exam, [fair] insight into the situation, They are engaged in the discharge process, as well as being friendly and amenable in behavioral control and havent been engaging in any observed concerning behavior or ideation recently. They decline voluntary extension/admission at this time and must be discharged in good kiarra, as Im unable to make a case for holding the patient against their will. They may have historical risk factors of admissions and other interactions with psychiatry however, those are not modifiable from a clinical perspective. The patient will need to be discharged in good kiarra. MENTAL STATUS EXAMINATION ON DISCHARGE: [General: Well dressed with good hygiene Speech: Spontaneous and fluid Thought processes: Linear and logical Thought content: Future orientated Abstract reasoning, and computation: Intact Description of associations: Intact Description of abnormal or psychotic thoughts:Denies any suicidal or homicidal ideation. Denies any auditory or visual hallucinations. Does not appear to be responding to internal stimuli. Does not appear to be endorsing any bizarre or paranoid ideation. Judgment: fair Insight: fair Orientation: Alert and orientated 3 Recent and remote memory: Intact Attention span and concentration: Intact Fund of knowledge: Adequate Mood: "okay" Affect: Euthymic with a full range] PLAN/FOLLOWUP ARRANGEMENTS: Follow up appointments made (PCP and MH in 5 days of D/C date) and safety plan completed. Safety Planning aspects completed prior to discharge [Family contact completed, educated on safe practices, instructed on removal and mitigation of dangerous means] [RN reviewed crisis hotline information and other aspects to empower patient to access care in interim before next appointment.] The amount of time spent in the coordination of care for this patient was xiomara roximately 30 minutes. Vital Signs/I&Os Vital Signs Date Time Temp Pulse Resp B/P (MAP) Pulse Ox O2 Delivery O2 Flow Rate FiO2 01/13/20 06:45 98.0 90 12 127/76 (93) Room Air 01/11/20 14:23 100 Medications Scheduled Citalopram Hydrobromide (Citalopram HBr) 20 Mg Tablet, 20 MG PO QHS, (Reported) Nicotine (Nicotine Patch) 21 Mg Patch.td24, 1 PATCH TD DAILY for tobacco for 30 Days, #30 Pantoprazole Sodium (Pantoprazole Sodium) 40 Mg Tablet.dr, 40 MG PO DAILY, (Reported) Scheduled PRN Hydroxyzine HCl (Hydroxyzine HCl) 10 Mg Tablet, 1 TAB PO DAILY PRN for ANXIETY/ AGITATION for 7 Days, #7 Miscellaneous Medications [Patient Comment] , (Reported) PATIENT HASN'T TAKEN ANY HOME MEDICATIONS TODAY Allergies Coded Allergies: No Known Allergies (Unverified , 01/10/20) ANABELLE LANDEROS DO Jan 13, 2020 10:23
[2020-01-13] MEDS ORDERED: NICO21PAT TD (11:00)
[2020-01-13] MEDS ORDERED: HYDR-643 PO (11:33)
== END 2020-01-13 11:30 | disposition home or self-care (01) | DRG 755 ==
LOC: M ED 18:04 → M ED INP 01-11 15:31 → M PSY 01-11 16:15
PROVIDERS: ADMIT Psychiatry & Neurology Addiction Medicine; ATTEND Psychiatry & Neurology Addiction Medicine
DX: F43.25 Adjustment disorder with mixed disturbance of emotions and conduct (principal); Z79.899 Other long term (current) drug therapy; K21.9 Gastro-esophageal reflux disease without esophagitis; F17.200 Nicotine dependence, unspecified, uncomplicated

== ENCOUNTER 2022-12-25 08:30 | Day surgery (SDC) | payer OTHER ==
[~2022-12-25] VITALS: Ht 160 cm; Wt 84.1 kg
[~2022-12-25 08:30] MED LIST changes: +CITA20TA7 PO; +HYDR-643 PO; +LIDOCAINE 2% 100MG/5ML SDV (FOR ANES.) As Ordered ONE; +NICO21PAT TD; +NS 1,000 ML IV ONE; +OMEP-173 PO; +PANT40TA29 PO; +PATIENT COMMENT; +patient comment; +propofoL 200 MG/20 ML VIAL As Ordered ONE
[2022-12-25] MEDS ORDERED: fentaNYL 100 MCG/2 ML INJECTION As Ordered ONE (09:04)
[2022-12-25 09:50] VITALS: BP 121/71; O2SAT 99
== END 2022-12-25 10:11 | disposition home or self-care (01) ==
LOC: M OPP 08:30
PROVIDERS: ATTEND Internal Medicine Gastroenterology
DX: K22.89 Other specified disease of esophagus (principal); K29.70 Gastritis, unspecified, without bleeding; R12 Heartburn; Z72.0 Tobacco use; Z79.899 Other long term (current) drug therapy
CPT/HCPCS: 43239; 88305; J3010

== ENCOUNTER → 2023-08-12 | Outpatient (CLI) | payer OTHER ==
[~2023-08-12] MED LIST changes: -LIDOCAINE 2% 100MG/5ML SDV (FOR ANES.) As Ordered ONE; -NS 1,000 ML IV ONE; -propofoL 200 MG/20 ML VIAL As Ordered ONE
[2023-08-12 13:26] LABS: BASO # 0.1 10^3/uL (0.0-0.2); BASO % 1.2 % (0.0-1.0); EOS # 0.4 10^3/uL (0.0-0.5); EOS % 3.8 % (0.0-3.0); HEMOGLOBIN 13.3 g/dl (12.0-15.5); LYMPH # 2.5 10^3/uL (1.5-5.0); LYMPH % 24.4 % (24.0-44.0); MEAN CORPUSCULAR HEMOGLOBIN 26.4 pg (27.0-33.0); MEAN CORPUSCULAR HGB CONC 31.7 g/dl (32.0-36.5); MEAN CORPUSCULAR VOLUME 83.5 fl (80.0-96.0); MONO # 0.9 10^3/uL (0.0-0.8); MONO % 8.5 % (2.0-8.0); NEUTROPHILS # 6.3 10^3/uL (1.5-8.5); NEUTROPHILS % 61.8 % (36.0-66.0); PLATELET COUNT, AUTOMATED 295 10^3/uL (150-450); RED BLOOD COUNT 5.03 10^6/uL (4.00-5.40); WHITE BLOOD COUNT 10.3 10^3/uL (4.0-10.0)
[2023-08-12 14:21] LABS: ALBUMIN 3.7 G/DL (3.2-5.2); ALKALINE PHOSPHATASE 75 U/L (46-116); ALT/SGPT 38 U/L (7.0-40); AST/SGOT 26 U/L (<34); BILIRUBIN,TOTAL 0.4 MG/DL (0.3-1.2); BLOOD UREA NITROGEN 11 MG/DL (9-23); CALCIUM LEVEL 9.3 MG/DL (8.5-10.1); CARBON DIOXIDE LEVEL 28 MMOL/L (20-31); CHLORIDE LEVEL 106 MMOL/L (98-107); CHOLESTEROL LEVEL 223 MG/DL (<200); CHOLESTEROL RISK RATIO 6.81 (<5); CREATININE FOR GFR 0.67 MG/DL (0.55-1.30); GLOMERULAR FILTRATION RATE > 60.0 (>60); GLUCOSE, FASTING 117 MG/DL (60-100); HDL CHOLESTEROL 32.7 MG/DL (>40); LDL CHOLESTEROL 124.5 MG/DL (<100); NON-HDL-C 190.3 MG/DL; SODIUM LEVEL 138 MMOL/L (136-145); THYROID STIMULATING HORMONE 0.743 uIU/ML (0.55-4.78); TOTAL 25(OH) VITAMIN D 15.9 NG/ML (20.0-100.0); TRIGLYCERIDES LEVEL 329 MG/DL (<150)
== END ==
LOC: M WUC 09:54
PROVIDERS: ATTEND Physician Assistant
DX: Z13.6 Encounter for screening for cardiovascular disorders (principal); F41.9 Anxiety disorder, unspecified

== ENCOUNTER → 2023-12-11 | Outpatient (REF) | payer OTHER | LOC: M SFHCLERA 10:44 | PROVIDERS: ATTEND Family Medicine | DX: Z01.84 Encounter for antibody response examination (principal) ==

== ENCOUNTER → 2024-07-22 | Outpatient (CLI) | payer OTHER ==
[2024-07-22 12:28] LABS: BASO # 0.1 10^3/uL (0.0-0.2); BASO % 0.9 % (0.0-1.0); EOS # 0.2 10^3/uL (0.0-0.5); EOS % 1.7 % (0.0-3.0); HEMATOCRIT 44.1 % (36.0-47.0); HEMOGLOBIN 13.8 g/dl (12.0-15.5); LYMPH % 17.7 % (24.0-44.0); MEAN CORPUSCULAR HEMOGLOBIN 25.7 pg (27.0-33.0); MEAN CORPUSCULAR HGB CONC 31.3 g/dl (32.0-36.5); MEAN CORPUSCULAR VOLUME 82.3 fl (80.0-96.0); MONO % 9.3 % (2.0-8.0); NEUTROPHILS # 7.8 10^3/uL (1.5-8.5); PLATELET COUNT, AUTOMATED 244 10^3/uL (150-450); RED BLOOD COUNT 5.36 10^6/uL (4.00-5.40); WHITE BLOOD COUNT 11.2 10^3/uL (4.0-10.0)
[2024-07-22 12:50] LABS: HEMOGLOBIN A1c 5.7 % (4.0-6.0)
[2024-07-22 13:17] LABS: ALBUMIN 3.7 G/DL (3.2-5.2); ALKALINE PHOSPHATASE 76 U/L (35-104); ALT/SGPT 29 U/L (7.0-40); AST/SGOT 18 U/L (<34); BILIRUBIN,TOTAL 0.5 MG/DL (0.3-1.2); BLOOD UREA NITROGEN 10 MG/DL (9-23); CALCIUM LEVEL 9.5 MG/DL (8.5-10.1); CARBON DIOXIDE LEVEL 28 MMOL/L (20-31); CHLORIDE LEVEL 106 MMOL/L (98-107); CHOLESTEROL LEVEL 178 MG/DL (<200); CHOLESTEROL RISK RATIO 5.29 (<5); CREATININE FOR GFR 0.76 MG/DL (0.55-1.30); GLOMERULAR FILTRATION RATE > 60.0 (>58); GLUCOSE, FASTING 144 MG/DL (60-100); HDL CHOLESTEROL 33.6 MG/DL (>40); LDL CHOLESTEROL 115.4 MG/DL (<100); NON-HDL-C 144.4 MG/DL; POTASSIUM SERUM 4.6 MMOL/L (3.5-5.1); SODIUM LEVEL 140 MMOL/L (136-145); TOTAL 25(OH) VITAMIN D 34.4 NG/ML (20.0-100.0); TOTAL PROTEIN 7.3 G/DL (5.7-8.2); TRIGLYCERIDES LEVEL 145 MG/DL (<150)
== END ==
LOC: M WUC 10:31
PROVIDERS: ATTEND Family Medicine
DX: E55.9 Vitamin D deficiency, unspecified (principal); R73.01 Impaired fasting glucose

== ENCOUNTER → 2024-11-09 | Outpatient (REF) | payer OTHER ==
[2024-11-09 18:48] LABS: ALT/SGPT 28 U/L (7.0-40); AST/SGOT 23 U/L (<34); CALCIUM LEVEL 9.3 MG/DL (8.5-10.1); CARBON DIOXIDE LEVEL 26 MMOL/L (20-31); CHLORIDE LEVEL 105 MMOL/L (98-107); CREATININE FOR GFR 0.75 MG/DL (0.55-1.30); GLOMERULAR FILTRATION RATE > 90.0 (>58); POTASSIUM SERUM 4.3 MMOL/L (3.5-5.1); SODIUM LEVEL 142 MMOL/L (136-145)
[2024-11-09 19:07] LABS: ESTIMATED AVERAGE GLUCOSE 137.0 MG/DL (60-110)
== END ==
LOC: M SFHCLERA 10:30
PROVIDERS: ATTEND Family Medicine
DX: R73.03 Prediabetes (principal)

== ENCOUNTER 2025-01-31 06:50 | Day surgery (SDC) | payer OTHER ==
[~2025-01-31] VITALS: Ht 160 cm; Wt 82.6 kg
[~2025-01-31 06:50] MED LIST changes: +IBUP80TA
[2025-01-31] MEDS ORDERED: LIDOCAINE 2% 100 MG/5 ML SDV (FOR ANES.) As Ordered ONE (07:21)
[2025-01-31] MEDS ORDERED: GLYCOPYRROLATE INJ 0.2 MG/ML 2 ML VIAL As Ordered ONE (07:21)
[2025-01-31 08:20] VITALS: BP 120/73; TEMP 98.4; O2SAT 100
== END 2025-01-31 08:22 | disposition home or self-care (01) ==
LOC: M OPP 06:50
PROVIDERS: ATTEND Internal Medicine Gastroenterology
DX: R13.10 Dysphagia, unspecified (principal); Z79.899 Other long term (current) drug therapy; F17.210 Nicotine dependence, cigarettes, uncomplicated
CPT/HCPCS: 43249; J1596